=== PATIENT | female | born 1935 | race Caucasian/White ===

== ENCOUNTER → 2016-05-19 | Outpatient (CLI) | payer OTHER, MEDICARE ==
--- NOTE | 2016-05-19 12:44 | MA ---
Bilateral Diagnostic Mammogram With Tomosynthesis Clinical Indications: Right breast lump upper outer quadrant Technique: Standard digital cephalocaudal and tomosynthesis mediolateral oblique projections were ob tained. A true lateral digital view is performed of the right breast. The digital images were process ed by the [facility] computer aided detection system. Comparison: March 2014 and July 2011. Breast density: B; The breast tissue is scattered. Findings: CAD was reviewed. No suspicious findings are identified. Specifically no abnormality in th e upper outer right breast. Impression: Negative mammogram. We will proceed to ultrasound to further evaluate the palpable lump i n the upper outer right breast. BI-RADS 0. Additional imaging of the right breast with ultrasound. Replaced By [facility] will send a result letter to the patient. Negative mammography should not preclude additional workup of a clinically suspicious finding. The patient's information is entered into a reminder system with a target due date for her next mammo gram.
--- NOTE | 2016-05-19 13:45 | US ---
Right Breast Ultrasound History: Palpable thickening upper outer right breast identified by physician Comparison: Diagnostic mammogram earlier (negative) Technique: I first performed a directed physical examination. This was followed by ultrasound exam with a high frequency linear transducer. Findings: On my physical examination I do not feel an abnormality in the upper outer right breast or left axilla. On ultrasound only normal breast parenchyma is identified in the left breast and no bay opathy is identified in the left axilla. Impression: Negative. BI-RADS 1. Recommendation: The patient should follow-up with her primary care physician to ensure that the palpa ble thickening is no longer present to the original examiner. Screening mammography is recommended in one year.
== END ==
LOC: FIMAGING 11:51
PROVIDERS: ATTEND Family Medicine
DX: N63 Unspecified lump in breast (principal)
CPT/HCPCS: 76641; G0204; G0279